=== PATIENT | male | born 1960 | race African-American/Black ===

== ENCOUNTER 2019-12-03 03:47 | Observation (INO) | payer OTHER ==
[~2019-12-03] VITALS: Ht 175.3 cm; Wt 97.3 kg
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
[2019-12-03 04:13] LABS: BASO # 0.1 x10^3/uL (0.0-0.2); BASO % 1 % (0-3); EOS # 0.3 x10^3/uL (0.0-0.7); EOS % 5 % (0-3); HEMATOCRIT 44.5 % (39.0-53.0); HEMOGLOBIN 15.2 g/dL (13.0-17.5); LYMPH # 2.3 x10^3/uL (1.0-4.8); LYMPH % 45 % (24-48); MEAN CORPUSCULAR HEMOGLOBIN 31 pg (25-35); MEAN CORPUSCULAR HGB CONC 34 g/dL (31-37); MEAN CORPUSCULAR VOLUME 89 fL (79-100); MONO # 0.6 x10^3/uL (0.0-1.1); MONO % 12 % (0-9); NEUT # 1.9 x10^3/uL (1.8-7.7); NEUT % 38 % (31-73); PLATELET COUNT 178 x10^3/uL (140-400); RED BLOOD COUNT 4.98 x10^6/uL (4.30-5.70); RED CELL DISTRIBUTION WIDTH 14.2 % (11.5-14.5); WHITE BLOOD COUNT 5.1 x10^3/uL (4.0-11.0)
[2019-12-03 04:20] LABS: CALCIUM 8.6 mg/dL (8.5-10.1); CREATININE 0.9 mg/dL (0.7-1.3); GFR 86.7; PARTIAL THROMBOPLASTIN TIME 30 SEC (24-38); POTASSIUM 3.8 mmol/L (3.5-5.1); PROTHROMBIN TIME PATIENT 13.4 SEC (11.7-14.0)
[2019-12-03 04:24] LABS: D-DIMER < 0.27 ug/mlFEU (0.00-0.50)
[2019-12-03 04:26] LABS: ALBUMIN 3.5 g/dL (3.4-5.0); ALBUMIN/GLOBULIN RATIO 0.9 (1.0-1.7); MAGNESIUM 2.1 mg/dL (1.8-2.4); TOTAL BILIRUBIN 0.7 mg/dL (0.2-1.0); TOTAL PROTEIN 7.6 g/dL (6.4-8.2)
[2019-12-03] MEDS ORDERED: ONDANSETRON PF 4 MG/2 ML VIAL. IVP ONE (04:45)
[2019-12-03] MEDS ORDERED: ONDANSETRON PF 4 MG/2 ML VIAL. IV PRN (05:15)
[2019-12-03] MEDS ORDERED: IV NORMAL SALINE 1000ML BAG 1,000 ML IV ONE (05:15)
[2019-12-03] MEDS ORDERED: DEXTROSE 50% 25 GM / 50ML DISP.SYRIN. IV PRN ×2 (05:15→14:00)
[2019-12-03] MEDS ORDERED: MORPHINE SULFATE 4 MG/ML VIAL. IV ONE (05:15)
--- NOTE | 2019-12-03 05:20 | RAD ---
PA and lateral chest. HISTORY: Chest pain PA and lateral views were taken of the chest. Lungs are free of infiltrates. Heart is normal in size. There is no effusion. There is a density along the right side mediastinum which could be a hypertrophic change along the spine or possibly a slightly atypical location of the azygos vein. A mass seems less likely. I do not have an old study for complaint comparison. A interval follow-up chest x-ray could be of benefit. There is mild scoliosis and hypertrophic change in the spine. IMPRESSION: 1. Density along the right mediastinum. 2. No acute infiltrates. Electronically signed by: Nicholas Deleon MD (12/03/2019 5:16 AM) [id number]
[2019-12-03 08:00] VITALS: BP 166/91
[2019-12-03] MEDS: INSULIN LISPRO 300 UNITS/3 ML VIAL. SQ SCH ×3 (08:00→18:02)
--- NOTE | 2019-12-03 08:38 | EKG ---
[facility] [address] [place] [id number] Test Date: 2019-12-03 Test Time: 03:50:38 Pat Name: RAYMOND MOELLER Department: Room: Gender: M Wedding Day Coordinator: : 1960 Requested By: STERLING COLÓN Order Number: [id number] Reading MD: Measurements Intervals [place] Rate: 70 P: 58 AR: 164 QRS: 28 QRSD: 82 T: 99 QT: 380 QTc: 413 Interpretive Statements SINUS RHYTHM T ABNORMALITY IN HIGH LATERAL LEADS ABNORMAL ECG RI6.01 No previous ECG available for comparison
[2019-12-03] MEDS: MORPHINE SULFATE 4 MG/ML VIAL. IV PRN ×2 (08:39→23:10)
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
[2019-12-03 09:47] LABS: BILIRUBIN,URINE NEGATIVE (NEG); CLARITY,URINE CLEAR; COLOR,URINE YELLOW; NITRITE,URINE NEGATIVE (NEG); PROTEIN,URINE NEGATIVE (NEG-TRACE); UROBILINOGEN,URINE 0.2 mg/dL (0.2 mg/dL)
[2019-12-03 09:54] LABS: AMPHETAMINE/METHAMPHETAMINE NEG (NEG); BARBITURATES NEG (NEG); BENZODIAZEPINES NEG (NEG); CANNABINOIDS NEG (NEG); COCAINE NEG (NEG); METHADONE NEG (NEG); OPIATES POS (NEG); PHENCYCLIDINE NEG (NEG)
[2019-12-03 10:04] LABS: CHOLESTEROL/HDL RATIO 5.9
[2019-12-03 10:06] LABS: BACTERIA,URINE 0 /HPF (0-FEW); RBC,URINE 0 /HPF (0-2); WBC,URINE 0 /HPF (0-4)
[2019-12-03 11:00] VITALS: BP 153/88
[2019-12-03] MEDS ORDERED: FINA5TAB4 PO (11:50)
[2019-12-03] MEDS ORDERED: HYDR12.58 PO (11:50)
[2019-12-03] MEDS ORDERED: METF500T16 PO (11:50)
[2019-12-03] MEDS ORDERED: LAMO100T8 PO (11:50)
[2019-12-03] MEDS ORDERED: TAMS0.4C97 PO (11:50)
[2019-12-03] MEDS ORDERED: METO25TA4 PO (11:50)
[2019-12-03] MEDS ORDERED: ASPI-630 PO (11:50)
[2019-12-03] MEDS ORDERED: LIPITOR80 MG PO (11:50)
[2019-12-03] MEDS ORDERED: DOXA4TAB3 PO (11:50)
[2019-12-03] MEDS ORDERED: NITR0.4T22 SL (11:50)
[2019-12-03] MEDS ORDERED: FINASTERIDE 5 MG TABLET. PO SCH (12:00)
[2019-12-03] MEDS: ASPIRIN CHEWABLE 81 MG TABLET. PO SCH (12:29)
[2019-12-03] MEDS ORDERED: PROCHLORPERAZINE 10 MG/2 ML VIAL. IV PRN (12:30)
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
[2019-12-03] MEDS ORDERED: REGADENOSON 0.4 MG/5 ML DISP.SYRIN. IV ONE (13:30)
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
[2019-12-03] MEDS ORDERED: POTASSIUM CHLORIDE 10MEQ 100 ML IV SCH (14:00)
[2019-12-03] MEDS ORDERED: ONDANSETRON PF 4 MG/2 ML VIAL. IVP PRN (14:00)
[2019-12-03] MEDS ORDERED: POTASSIUM CHLORIDE 10MEQ 100 ML IV PRN (14:00)
[2019-12-03] MEDS ORDERED: MAGNESIUM SULFATE 2GM 50 ML IV SCH (14:00)
[2019-12-03] MEDS ORDERED: ENOXAPARIN 40 MG/0.4 ML SYRINGE. SQ SCH (14:00)
[2019-12-03] MEDS ORDERED: ACETAMINOPHEN 325 MG TABLET. PO PRN (14:00)
[2019-12-03] MEDS ORDERED: SENNOSIDES 8.6 MG TABLET PO PRN (14:00)
[2019-12-03] MEDS ORDERED: POTASSIUM CHLORIDE 20 MEQ TABLET.ER. PO PRN (14:00)
[2019-12-03] MEDS ORDERED: DOCUSATE SODIUM 100 MG CAPSULE. PO PRN (14:00)
--- NOTE | 2019-12-03 14:05 | NUR ---
Patient returned from stress test. Meal tray ordered.
[2019-12-03] MEDS ORDERED: ELECTROLYTE (NON-ICU) PROTOCOL. MC PRN (14:30)
--- NOTE | 2019-12-03 14:30 | NUR ---
Meal tray to bedside: high fat diet of cheeseburger and fries. Patient sitting upright at edge of bed. Guards x 2 at bedside.
[2019-12-03] MEDS: levETIRAcetam 500 MG in IV DEXTROSE 5% 100ML 100 ML IV SCH ×2 (14:33→22:03)
[2019-12-03 15:00] VITALS: BP 178/81
--- NOTE | 2019-12-03 16:00 | NUR ---
Pt transported via wheelchair to room 211. Report called to MARIA LUISA Sheikh. 2 guards with patient at time of transfer.
[2019-12-03] MEDS ORDERED: amLODIPine BESYLATE 10 MG TABLET PO ONE (17:00)
[2019-12-03] MEDS ORDERED: LABETALOL 20 MG/4 ML DISP.SYRIN. IVP PRN (17:00)
--- NOTE | 2019-12-03 17:10 | RAD ---
MR#: [id number] Date of Study: 12/03/2019 Ordering Physician: JESSICA COX, Referring Physician: PRVAEEN ZIMMER Tech: RT Alicia (R) (N) APPROVED REPORT Test Type: Pharmacological Stress Nurse/Tech: Juju Simpson R.N. Test Indications: chest pain Cardiac History: bradycardia, cad, stents, htn, dm, high chol, seizure Medications: see ehr Medical History: see ehr Resting ECG: SR Resting Heart Rate: 52 bpm Pretest Chest Pain: No chest pain Nurse/Tech Notes lungs cta, heart tones regular Consent: The procedure was explained to the patient in lay terms. Informed consent was witnessed. Renaldo eout was entered into [facility]. History and Stress Test performed by SHAYAN Garcia, ROBB (R) (N) Pharm. Details Pharmacologic stress testing was performed using 0.4mg per 5ml of regadenoson given intravenously ove r 7-10 seconds. Stress Symptoms No chest pain or symptoms.Nausea, significant vomiting POST EXERCISE Reason for Termination: Infusion complete Target HR: No Max HR: 104 bpm Max Blood Pressure: 217/95mmHg Chest Pain: No. Arrhythmia: No. ST Change: No. INTERPRETATION Stress EKG Conclusion: No evidence of stress induced EKG changes Imaging Protocol IMAGE PROTOCOL: Stress Tc-99m/rest Tc-99m 2 days Rest: Stress: Viability: Radiopharm.Tc99m Sestamibi [id number] Duration 15min. Img Date 12/03/2019 Inj-Img [id number]. Stress Admin Site: IV - Left HandAdministrator: SHAYAN Garcia, ROBB (R)(N) STRESS DATA End Diast. Vol.125.0mlAv. Heart Rate53.0bpm End Syst. Vol.40.0mlCO Index BSA4.5L/min Myocardial Ssny704.0gEject. Gjbnsunp16.0% Stress Rates Pk. Fill Rate2.75EDV/secLVtime Pk. Fill 240.48msec Pk. Empty Rate3.35ESV/secLVtime Pk. Htyol138.10msec 02/14 Pk. Fill1.25EDV/sec Stress Scores Regional WT2.00Summed WT21.00 Regional WM0.00Summed WM2.00 LV Perfusion Normal perfusion at stress. Wall Motion Normal wall motion, EF 65% LV Perf. Quant 17 Seg. SSS0.00 Stress Defect Extent (% LAD)0.00Rest Defect Extent (% LAD)Rev. Defect Extent (% LAD) Stress Defect Extent (% LCX) 0.00Rest Defect Extent (% LCX)Rev. Defect Extent (% LCX) Stress Defect Extent (% RCA)0.00Rest Defect Extent (% RCA)Rev. Defect Extent (% RCA) Stress Defect Extent (% RACHEL)0.00Rest Defect Extent (% RACHEL)Rev. Defect Extent (% RACHEL) Other Information Quality:Average Risk Assessment: Low Risk Conclusion 1. No evidence of stress induced EKG changes 2. Normal perfusion at stress. 3. Rest images not obtained. 4. Normal EF at > 65% 5. Low risk study overall Signed by : Tavares Bland, Electronically Approved : 12/03/2019 17:09:58
[2019-12-03] MEDS ORDERED: ALBUTEROL SULFATE 2.5 MG/3 ML NEBU. NEB PRN (17:45)
[2019-12-03 19:00] VITALS: BP 115/44
[2019-12-03] MEDS ORDERED: MAGNESIUM OXIDE 400 MG TABLET PO SCH (21:00)
[2019-12-03] MEDS ORDERED: ATORVASTATIN CALCIUM 40 MG TABLET. PO SCH (21:00)
[2019-12-03] MEDS: lamoTRIgine 100 MG TABLET. PO SCH (21:57)
[2019-12-03] MEDS: METOPROLOL TART IMMED RELEASE 25 MG TABLET. PO SCH (21:58)
[2019-12-03 22:16] VITALS: BP 140/74
[2019-12-04 02:52] VITALS: BP 128/81
[2019-12-04 07:00] VITALS: BP 134/102
[2019-12-04] MEDS ORDERED: ASPIRIN ENTERIC COATED 81 MG TABLET.DR. PO SCH (08:00)
[2019-12-04] MEDS: INSULIN LISPRO 300 UNITS/3 ML VIAL. SQ SCH ×2 (08:00→12:00)
[2019-12-04] MEDS ORDERED: FINASTERIDE 5 MG TABLET. PO SCH (09:00)
[2019-12-04] MEDS ORDERED: TAMSULOSIN 0.4 MG CAP.ER.24H. PO SCH (09:00)
[2019-12-04] MEDS: ASPIRIN CHEWABLE 81 MG TABLET. PO SCH (09:00)
[2019-12-04] MEDS ORDERED: amLODIPine BESYLATE 5 MG TABLET PO SCH (09:00)
[2019-12-04] MEDS: METOPROLOL TART IMMED RELEASE 25 MG TABLET. PO SCH (09:00)
--- NOTE | 2019-12-04 09:37 | SNU/HH DC ---
DISCHARGE WITH HOME HEALTH DISCHARGE INFORMATION: Discharge Date: Dec 04, 2019 Final Diagnosis: Problems Medical Problems: (1) Chest pain Status: Acute Condition on Discharge: Stable CODE STATUS: Code Status: Full HOME HEALTH: Face to Face: I certify this patient is under my care and that I, or a nurse practitioner or physician's physicians assistant working with me, had a face to face encounter that meets the physician face to face encounter requirements with this patient on 12/03 Medical Complications: Other (chest pain) RN For Eval/Treatment: Yes Pt Meets Homebound Status: Other: (prisoner) FOLLOW-UP: Follow up with: [place] [facility] physician as able TREATMENT/EQUIPMENT ORDERS: Adaptive Equipment Issued: None CERTIFICATION STATEMENT: Certification Statement: Certification Statement: Based on the above finding, I certify that this patient is confined to the home and needs intermittent nursing home care, physical therapy and/or speech therapy, or continues to need occupational therapy.~ This patient is under my care, and I have initiated the establishment of the plan of care.~ This patient will be followed by myself or a community physician who will periodically review the plan of care. Home Meds Reported Medications Tamsulosin Hcl (FLOMAX) 0.4 Mg Cap.er.24h, 2 CAP PO DAILY for UNKNOWN, #30 CAP 11 Refills 12/03/19 Nitroglycerin (NITROGLYCERIN SubLingual) 0.4 Mg Tab.subl, 0.4 MG SL PRN Q5MIN PRN for CHEST PAIN, BOTTLE 12/03/19 Metoprolol Tartrate (METOPROLOL TARTRATE) 25 Mg Tablet, 1 TAB PO BID for HTN, #180 TAB 1 Refill 12/03/19 Metformin Hcl (METFORMIN HCL) 500 Mg Tablet, 500 MG PO BIDWMEALS for ANTI- DIABETIC, TAB 0 Refills 12/03/19 Lamotrigine (LAMOTRIGINE) 100 Mg Tablet, 1 TAB PO BID for UNKNOWN, #60 TAB 12/03/19 Hydrochlorothiazide (HYDROCHLOROTHIAZIDE TABLET) 12.5 Mg Tablet, 12.5 MG PO DAILY for DIURETIC, TAB 0 Refills 12/03/19 Finasteride (FINASTERIDE) 5 Mg Tablet, 1 TAB PO DAILY for UNKNOWN, #30 TAB 11 Refills 12/03/19 Doxazosin Mesylate (DOXAZOSIN MESYLATE) 4 Mg Tablet, 1 TAB PO HS for UNKNOWN, #30 TAB 5 Refills 12/03/19 Atorvastatin Calcium (LIPITOR) 80 Mg Tablet, 80 MG PO HS for FOR CHOLESTEROL, #30 TAB 0 Refills 12/03/19 Aspirin (ASPIRIN) 81 Mg Tab.chew, 1 TAB PO DAILY for CAD, #30 TAB 3 Refills 12/03/19 GOOD TURNER MD Dec 04, 2019 09:37
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
[2019-12-04 09:48] LABS: BASO % 1 % (0-3); EOS # 0.3 x10^3/uL (0.0-0.7); EOS % 6 % (0-3); HEMATOCRIT 48.4 % (39.0-53.0); LYMPH # 2.7 x10^3/uL (1.0-4.8); LYMPH % 52 % (24-48); MEAN CORPUSCULAR HEMOGLOBIN 30 pg (25-35); MEAN CORPUSCULAR HGB CONC 33 g/dL (31-37); MEAN CORPUSCULAR VOLUME 90 fL (79-100); MONO # 0.5 x10^3/uL (0.0-1.1); MONO % 9 % (0-9); NEUT # 1.7 x10^3/uL (1.8-7.7); NEUT % 32 % (31-73); PLATELET COUNT 195 x10^3/uL (140-400); RED BLOOD COUNT 5.37 x10^6/uL (4.30-5.70); WHITE BLOOD COUNT 5.2 x10^3/uL (4.0-11.0)
[2019-12-04] MEDS: oxyCODONE/APAP 5/325 1 TAB TABLET PO PRN ×2 (09:54→14:10)
[2019-12-04] MEDS: lamoTRIgine 100 MG TABLET. PO SCH (09:56)
[2019-12-04] MEDS: levETIRAcetam 500 MG in IV DEXTROSE 5% 100ML 100 ML IV SCH (09:58)
[2019-12-04 10:14] LABS: CHOLESTEROL/HDL RATIO 5.1
--- NOTE | 2019-12-04 10:19 | NUR ---
SS following for discharge planning. SS reviewed pt chart and discussed with pt RN. Pt is from [facility] in [place]. SS received phone contact from Dr. Chu at the [facility] in [place], ext 7126; fax [phone]. SS and pt's RN provided update on pt status. Discharge order on the chart. SS faxed clinical as requested. Packet provided to guards. Pt's RN will notify Dr. Chu when cleared for transport. [facility] is requesting pt to be discharged by noon. Pt's RN and physician notified.
[2019-12-04 10:34] LABS: CALCIUM 9.1 mg/dL (8.5-10.1); GFR 92.9; MAGNESIUM 2.5 mg/dL (1.8-2.4); PHOSPHORUS 3.7 mg/dL (2.6-4.7)
[2019-12-04 10:35] LABS: POTASSIUM 4.5 mmol/L (3.5-5.1)
[2019-12-04 11:00] VITALS: BP 136/82
--- NOTE | 2019-12-04 11:09 | CARD ---
MR#: [id number] Date of Study: 12/04/2019 Ordering Physician: JESSICA COX, Referring Physician: JESSICA COX, Tech: Jyothi Hernandez APPROVED REPORT EXAM: Two-dimensional and M-mode echocardiogram with Doppler and color Doppler. Other Information Quality : Average INDICATION COPD Cardiac Disease: CAD Chest Pain RISK FACTORS Hypertension Hyperlipidemia Diabetes 2D DIMENSIONS RVDd2.9 (2.9-3.5cm)Left Atrium(2D)3.4 (1.6-4.0cm) IVSd1.3 (0.7-1.1cm)Aortic Root(2D)3.2 (2.0-3.7cm) LVDd5.0 (3.9-5.9cm)LVOT Diameter2.2 (1.8-2.4cm) PWd1.2 (0.7-1.1cm)LVDs2.6 (2.5-4.0cm) FS (%) 47.9 %SV93.6 ml LVEF(%)79.1 (>50%) Aortic Valve AoV Peak Kvng.129.3cm/sAoV VTI31.3cm AO Peak GR.6.7mmHgLVOT Peak Kvng.106.2cm/s LVOT VTI 24.25cmAO Mean GR.4mmHg BECKI (VMAX)2.52ii2RPU (VTI)2.87cm2 Mitral Valve MV E Eyphefgt08.8cm/sMV DECEL [id number] MV A Oqkkdrkt74.4cm/sMV [id number] E/A Ratio1.7MVA (PHT)4.11cm2 TDI E/Lateral E'8.2E/Medial E'10.5 Pulmonary Valve PV Peak Iodiryir883.0cm/sPV Peak Grad.5mmHg Tricuspid Valve RAP [id number] Pulmonary Vein S1 Ycslgygf38.9cm/sD2 Azessbnj52.5cm/s PVa [id number] LEFT VENTRICLE The left ventricle is normal size. There is borderline to mild concentric left ventricular hypertroph y. The left ventricular systolic function is normal and the ejection fraction is within normal range. The Ejection Fraction is 60-65%. There is normal LV segmental wall motion. The left ventricular onofre tolic function and filling is normal for age. RIGHT VENTRICLE The right ventricle is normal size. There is normal right ventricular wall thickness. The right ventr icular systolic function is normal. ATRIA The left atrium size is normal. The right atrium size is normal. The interatrial septum is intact wit h no evidence for an atrial septal defect or patent foramen ovale as noted on 2-D or Doppler imaging. AORTIC VALVE The aortic valve is normal in structure and function. Doppler and Color Flow revealed no significant aortic regurgitation. There is no significant aortic valvular stenosis. Calculated aortic valve area is 3.04 cm2 with maximum pressure gradient of 7 mmHg and mean pressure gradient of 4 mmHg. MITRAL VALVE The mitral valve is normal in structure and function. There is no evidence of mitral valve prolapse. There is no mitral valve stenosis. Doppler and Color-flow revealed trace mitral regurgitation. TRICUSPID VALVE The tricuspid valve is normal in structure and function. Doppler and Color Flow revealed no tricuspid valve regurgitation noted. There is no tricuspid valve stenosis. PULMONIC VALVE The pulmonic valve is not well visualized. Doppler and Color Flow revealed no pulmonic valvular regur gitation. There is no pulmonic valvular stenosis. GREAT VESSELS The aortic root is normal in size. The ascending aorta is normal in size. The IVC is normal in size a nd collapses >50% with inspiration. PERICARDIAL EFFUSION There is no evidence of significant pericardial effusion. Critical Notification Critical Value: No <Conclusion> The left ventricular systolic function is normal and the ejection fraction is within normal range. Th e Ejection Fraction is 60-65%. There is normal LV segmental wall motion. Signed by : Tavares Bland, Electronically Approved : 12/04/2019 11:08:59
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
[2019-12-04] MEDS ORDERED: AMLO5TAB4 PO (11:41)
[2019-12-04] MEDS ORDERED: METO25TA4 PO (11:41)
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
[2019-12-04] MEDS ORDERED: METOPROLOL TART IMMED RELEASE 25 MG TABLET. PO SCH (21:00)
== END 2019-12-04 14:22 ==
LOC: ER 03:47 → EEVIPCON 03:47 → ED HOLD 05:00 → 2 NORTH 15:21
PROVIDERS: ADMIT Family Medicine; ATTEND Family Medicine
DX: R07.89 Other chest pain (principal); Z20.828 Contact with and (suspected) exposure to other viral communicable diseases; G40.909 Epilepsy, unspecified, not intractable, without status epilepticus; E78.5 Hyperlipidemia, unspecified; I25.119 Atherosclerotic heart disease of native coronary artery with unspecified angina pectoris; J44.9 Chronic obstructive pulmonary disease, unspecified; E10.9 Type 1 diabetes mellitus without complications; E78.00 Pure hypercholesterolemia, unspecified; I10 Essential (primary) hypertension; I95.9 Hypotension, unspecified; R55 Syncope and collapse; R00.1 Bradycardia, unspecified; D57.1 Sickle-cell disease without crisis; G89.29 Other chronic pain; Z87.891 Personal history of nicotine dependence; Z95.1 Presence of aortocoronary bypass graft; Z79.4 Long term (current) use of insulin; Z79.82 Long term (current) use of aspirin; Z86.73 Personal history of transient ischemic attack (TIA), and cerebral infarction without residual deficits; Z79.01 Long term (current) use of anticoagulants; Z79.899 Other long term (current) drug therapy
CPT/HCPCS: 36415; 71046; 78452; 80048; 80053; 80061; 80307; 81001; 82962; 83690; 83735; 83880; 84100; 84443; 84484; 85025; 85045; 85379; 85610; 85730; 87426; 93005; 93017; 93306; 94640; 96361; 96365; 96366; 96372; 96375; 96376; 99285; A9500; G0378; J0780; J1650; J1815; J1953; J2270; J2405; J2785; J7030; J7060; J7613; U0003; G0379